=== PATIENT | female | born 1985 | race African-American/Black ===

== ENCOUNTER → 2019-02-19 | Outpatient (CLI) | payer BC ==
--- NOTE | 2019-02-19 15:59 | KCIC ---
Pelvic ultrasound HISTORY: Irregular menstrual bleeding. Cervical intraepithelial neoplasia. Irregular bleeding for 3 months. No prior study for comparison. Transabdominal scan Uterus is grossly unremarkable. No definite fluid in the pelvis. Right ovary demonstrates intact blood supply without obvious abnormality. Left ovary demonstrates intact blood supply without obvious abnormality. Transvaginal scan Uterus measures 8.9 x 5.1 x 3.7 cm. Small echogenic reflector is identified in the mid uterine segment likely calcification. Endometrial stripe measures 3 mm. The cervix demonstrates a heterogeneous echotexture, may be related to the patient's tumor. The left ovary measures 3.1 cm with intact blood supply and a 1.9 cm cyst or dominant follicle. The right ovary measures 3.6 cm. No evidence of free fluid. IMPRESSION: 1. Heterogeneous cervical echotexture, could be related to the patient's tumor and/or hemorrhage. 2. 1.9 cm left ovarian cyst or follicle. Electronically signed by: John Maldonado MD (02/19/2019 3:57 PM) [facility]
== END | disposition home or self-care (01) ==
LOC: KCIC US 12:38
PROVIDERS: ATTEND Physician Assistant Surgical
DX: N83.02 Follicular cyst of left ovary (principal); N87.0 Mild cervical dysplasia
CPT/HCPCS: 76830; 76856

== ENCOUNTER → 2020-08-29 | Outpatient (CLI) | payer MEDICAID ==
[2020-08-29 12:35] LABS: ALBUMIN 2.7 g/dL (3.4-5.0); ALBUMIN/GLOBULIN RATIO 0.8 (1.0-1.7); CREATININE 0.5 mg/dL (0.6-1.0); POTASSIUM 4.2 mmol/L (3.5-5.1); TOTAL BILIRUBIN 0.3 mg/dL (0.2-1.0); TOTAL PROTEIN 6.3 g/dL (6.4-8.2); URIC ACID 4.1 mg/dL (2.6-6.0)
[2020-08-29 12:53] LABS: HEMATOCRIT 34.3 % (36.0-47.0); HEMOGLOBIN 11.3 g/dL (12.0-15.5); MEAN CORPUSCULAR HEMOGLOBIN 29 pg (25-35); MEAN CORPUSCULAR HGB CONC 33 g/dL (31-37); MEAN CORPUSCULAR VOLUME 89 fL (79-100); PLATELET COUNT 277 x10^3/uL (140-400); RED BLOOD COUNT 3.87 x10^6/uL (3.50-5.40); RED CELL DISTRIBUTION WIDTH 13.8 % (11.5-14.5); WHITE BLOOD COUNT 15.6 x10^3/uL (4.0-11.0)
[2020-08-30 18:09] LABS: RUBELLA IGG ANTIBODY <0.90 index (Immune >0.99)
== END ==
LOC: LAB 11:19
PROVIDERS: ATTEND Obstetrics & Gynecology
DX: Z34.92 Encounter for supervision of normal pregnancy, unspecified, second trimester (principal); Z3A.17 17 weeks gestation of pregnancy
CPT/HCPCS: 36415; 80053; 83615; 84550; 85027; 85660; 86592; 86703; 86762; 86787; 86803; 86850; 86900; 86901; 87340

== ENCOUNTER → 2020-09-21 | Outpatient (CLI) | payer MEDICAID, BC ==
--- NOTE | 2020-09-22 17:58 | RAD ---
EXAM: Ultrasound OB Greater than 14 weeks INDICATION: Reason: Z34.92 / Spl. Instructions: / History: TECHNIQUE: Real-time obstetrical ultrasound was performed with permanent freeze-frame documentation. COMPARISON: None. FINDINGS: POSITION: Cephalic HEART RATE: 158 bpm SHANELL: 11.5 cm PLACENTA: Posterior CERVICAL LENGTH: 5.6 cm MATERNAL UTERUS: Unremarkable. MATERNAL ADNEXA: Unremarkable. AGE/DATES: Gestational Age by LMP: 21 weeks 5 days Gestation Age by US: 21 weeks 4 days EDC by LMP: 01/27/2021 EDC by US: 01/28/2021 WEIGHT: 464 grams +/- 69 grams PERCENTILE WEIGHT: Not estimated BIOMETRIC PARAMETERS: BPD: 5.0 cm corresponding with 21 weeks 1 day HC: 18.0 cm corresponding with 20 weeks 3 days AC: 16.9 cm corresponding with 21 weeks 6 days FL: 3.9 cm corresponding with 22 weeks 4 days ANATOMY: CARDIAC: Normal four chamber heart. UMBILICAL CORD: Normal 3 vessel cord. Normal cord insertion. BRAIN: Unremarkable. NOSE/LIPS: Unremarkable. SPINE: Unremarkable. EXTREMITIES: Unremarkable. STOMACH: Unremarkable. KIDNEYS: Unremarkable. BLADDER: Unremarkable. IMPRESSION: Normal OB ultrasound demonstrating a single viable fetus in cephalic position. Estimated gestational age of 21 weeks 4 days and EDC of 01/28/2021. Electronically signed by: Shira Rodriguez MD (09/22/2020 5:56 PM) [id number]
== END ==
LOC: US 13:42
PROVIDERS: ATTEND Obstetrics & Gynecology
DX: Z34.92 Encounter for supervision of normal pregnancy, unspecified, second trimester (principal); Z3A.21 21 weeks gestation of pregnancy
CPT/HCPCS: 76805

== ENCOUNTER → 2020-09-27 | Outpatient (CLI) | payer MEDICAID, BC ==
[~2020-09-27] MED LIST: DOCU-109 PO; IBUP-1060 PO
== END ==
LOC: SPEC 14:34
PROVIDERS: ATTEND Obstetrics & Gynecology
DX: Z34.92 Encounter for supervision of normal pregnancy, unspecified, second trimester (principal); Z3A.22 22 weeks gestation of pregnancy
CPT/HCPCS: Q0111

== ENCOUNTER → 2020-10-25 | Outpatient (CLI) | payer BC, MEDICAID ==
[2020-10-25 14:55] LABS: HEMATOCRIT 34.9 % (36.0-47.0); HEMOGLOBIN 11.7 g/dL (12.0-15.5); RED BLOOD COUNT 4.01 x10^6/uL (3.50-5.40); WHITE BLOOD COUNT 16.1 x10^3/uL (4.0-11.0)
== END ==
LOC: LAB 13:33
PROVIDERS: ATTEND Obstetrics & Gynecology
DX: Z34.92 Encounter for supervision of normal pregnancy, unspecified, second trimester (principal); Z3A.00 Weeks of gestation of pregnancy not specified
CPT/HCPCS: 36415; 82950; 85027

== ENCOUNTER → 2021-01-19 | Outpatient (CLI) | payer MEDICAID | LOC: LAB 12:51 | PROVIDERS: ATTEND Obstetrics & Gynecology | DX: Z01.812 Encounter for preprocedural laboratory examination (principal); Z20.828 Contact with and (suspected) exposure to other viral communicable diseases; O00.01 Abdominal pregnancy with intrauterine pregnancy | CPT/HCPCS: U0003; U0005 ==

== ENCOUNTER 2021-01-22 06:10 | Inpatient (IN) | payer MEDICAID ==
[~2021-01-22] VITALS: Ht 165.1 cm; Wt 174.5 kg
[2021-01-22] MEDS ORDERED: 0.9 % SODIUM CHLORIDE 10 ML DISP.SYRIN. IV PRN ×2 (06:15→19:00)
[2021-01-22] MEDS ORDERED: ONDANSETRON PF 4 MG/2 ML VIAL. IVP PRN (06:15)
[2021-01-22] MEDS ORDERED: IBUPROFEN 400 MG TABLET. PO PRN (06:15)
[2021-01-22] MEDS ORDERED: CITRIC ACID/SODIUM CITRATE 30 ML SOLUTION. PO PRN (06:15)
[2021-01-22] MEDS ORDERED: LIDOCAINE 1% PF 30 ML VIAL. INJ PRN (06:15)
[2021-01-22] MEDS ORDERED: BUTORPHANOL 2 MG/ML VIAL. IVP PRN (06:15)
[2021-01-22] MEDS ORDERED: OXYTOCIN 30 UNIT/500 ML PREMIX 500 ML IV PRN ×3 (06:15→19:00)
[2021-01-22] MEDS ORDERED: TERBUTALINE 1 MG/ML VIAL. SQ PRN (06:15)
[2021-01-22] MEDS ORDERED: ACETAMINOPHEN 500 MG TABLET PO PRN (06:30)
[2021-01-22] MEDS ORDERED: PENICILLIN G K 5,000,000 UNIT in IV DEXTROSE 5% 100ML 100 ML IV ONE (07:00)
[2021-01-22 07:01] VITALS: BP 126/64
[2021-01-22] MEDS: IV RINGERS,LACTATED 1000ML 1,000 ML IV SCH ×2 (07:19→11:51)
--- NOTE | 2021-01-22 08:02 | PDOC1 ---
[facility] H&P Date of Admission: Date of Admission: January 22, 2021 at 06:10 History of Present Illness: EDC: 01/27/21 LMP: 04/22/21 35y @ 39.2 by L=6 presents for indxn of labor. The pt has had very few ctx's to this point. PMH: Prediabetes, HLD, Obesity PSH: Denies Meds: PNV All: NKDA OBHx: 36wk x 2 SH: no tob, no EtOH FH: Colon Cancer, HTN, DM. Medications: Meds: Current Medications Medications (Trade) Dose Ordered Sig/Mary Route PRN Reason Start Time Stop Time Status Last Admin Dose Admin Ringer's Solution 1,000 ml @ 125 mls/hr Q8H IV 01/22/21 06:15 01/22/21 07:19 Oxytocin 500 ml @ 0 mls/hr CONT PRN IV SEE I/O RECORD 01/22/21 06:15 01/22/21 07:21 Penicillin G Potassium 6000039 unit/Dextrose 100 ml @ 100 mls/hr 1X ONCE IV 01/22/21 07:00 01/22/21 07:59 DC 01/22/21 07:19 Allergies: Coded Allergies: No Known Drug Allergies (Unverified , 01/22/21) Physical Exam: Vital Signs: Vital Signs Date Time Temp Pulse Resp B/P (MAP) Pulse Ox O2 Delivery O2 Flow Rate FiO2 01/22/21 07:01 98.4 131 18 126/64 (84) 99 Room Air 98.4 PE: GENERAL: No apparent distress. Alert and oriented. HEENT: Head normocephalic, atraumatic. NECK: Supple LUNGS: Clear to auscultation. HEART: RRR, S1, S2 present, pulses intact ABDOMEN: Soft, positive bowel sounds. EXTREMITIES: No cyanosis or edema. NEUROLOGIC: Normal speech, normal tone PSYCHIATRIC: Normal affect, normal mood. SKIN: No ulceration. FHT: 150s +acels/no decels/mLTV [place]: 7-10 min SVE: 3/60/-3 Assessment & Plan: A/P 35y @ 39.2 by L=6 1.) Indxn on Pit 2.) H/o PTD - both 36wks 3.) H/o dysplasia - pap neg/neg 06/06/20 4.) cHTN - BP high nml today. Baseline PIH labs wnl, Pr/Cr 0.092 5.) Rub NI 6.) Ct pos - BETH neg 08/01/20 7.) Anemia - Hgb 11.7 8.) TDAP given 11/22/20 9.) Fetus cat I FHT 10.) GBS pos on PCN YESSICA RHODES MD January 22, 2021 08:02
[2021-01-22 08:18] LABS: BASO % 0 % (0-3); EOS # 0.1 x10^3/uL (0.0-0.7); EOS % 1 % (0-3); HEMATOCRIT 37.4 % (36.0-47.0); HEMOGLOBIN 12.3 g/dL (12.0-15.5); LYMPH % 20 % (24-48); MEAN CORPUSCULAR HEMOGLOBIN 29 pg (25-35); MEAN CORPUSCULAR HGB CONC 33 g/dL (31-37); MEAN CORPUSCULAR VOLUME 89 fL (79-100); MONO % 6 % (0-9); NEUT # 10.8 x10^3/uL (1.8-7.7); NEUT % 72 % (31-73); PLATELET COUNT 280 x10^3/uL (140-400); RED BLOOD COUNT 4.22 x10^6/uL (3.50-5.40); RED CELL DISTRIBUTION WIDTH 15.7 % (11.5-14.5); WHITE BLOOD COUNT 14.9 x10^3/uL (4.0-11.0)
[2021-01-22] MEDS: PENICILLIN G K 2,500,000 UNIT in IV DEXTROSE 5% 50 ML IV SCH ×2 (11:51→16:18)
[2021-01-22] MEDS: BUTORPHANOL 2 MG/ML VIAL. IVP PRN ×2 (12:51→15:10)
[2021-01-22] MEDS ORDERED: ROPIVacaine 0.2% PF 10 ML VIAL. ONE ×2 (16:45→17:00)
[2021-01-22] MEDS ORDERED: L&D EPIDURAL SYRINGE 50 ML ONE (16:45)
[2021-01-22] MEDS ORDERED: fentaNYL PF VIAL 100 MCG/2 ML VIAL ONE (16:46)
[2021-01-22] MEDS ORDERED: L&D EPIDURAL 50 ML SYRINGE. ONE (17:00)
--- NOTE | 2021-01-22 18:44 | PDOC ---
VAGINAL DELIVERY DATE DATE: 01/22/21 TIME: 18:43 TIME Patient delivered a viable female over intact perineum at 1803. Wt 9 lb 9 oz. Apgars 8/8. Placenta delivered spontaneously, intact with 3VC. 2nd degree laceration repaired with 20 vicryl in nml fashion. Good hemostasis noted. 20 U of Pit given with IVF. EBL 200cc. WEIGHT Weight [ ] YESSICA RHODES MD January 22, 2021 18:44
[2021-01-22] MEDS ORDERED: BENZOCAINE 20% TOPICAL AEROSOL SPRAY 57GM CAN. TP PRN (19:00)
[2021-01-22] MEDS ORDERED: HYDROCORTISONE 1% TOPICAL OINTMENT 30GM TUBE. TP PRN (19:00)
[2021-01-22] MEDS ORDERED: ACETAMINOPHEN 325 MG TABLET. PO PRN (19:00)
[2021-01-22] MEDS ORDERED: MAG HYDROX/ALUMINUM HYD/SIMETH 30 ML ORAL.SUSP PO PRN (19:00)
[2021-01-22] MEDS ORDERED: PHENYLEPH/MINERAL OIL/PETROLAT RECTAL OINTMENT TUBE. RC PRN (19:00)
[2021-01-22] MEDS ORDERED: MMR per PROTOCOL. MC PRN (19:00)
[2021-01-22] MEDS ORDERED: TDaP (Adacel) per PROTOCOL. MC PRN (19:00)
[2021-01-22] MEDS ORDERED: SIMETHICONE 80 MG TAB.CHEW PO PRN (19:00)
[2021-01-22] MEDS ORDERED: diphenhydrAMINE HCL 25 MG CAPSULE PO PRN (19:00)
[2021-01-22] MEDS ORDERED: ZOLPIDEM 5 MG TABLET. PO PRN (19:00)
[2021-01-22] MEDS ORDERED: MAGNESIUM HYDROXIDE 2,400 MG/30 ML ORAL.SUSP. PO PRN (19:00)
[2021-01-22] MEDS: IBUPROFEN 400 MG TABLET. PO PRN (19:51)
[2021-01-22] MEDS: oxyCODONE/APAP 5/325 1 TAB TABLET PO PRN (19:52)
[2021-01-22 21:00] VITALS: BP 152/87
[2021-01-23] MEDS: oxyCODONE/APAP 5/325 1 TAB TABLET PO PRN ×2 (01:08→22:12)
[2021-01-23 01:10] VITALS: BP_SYST 125
[2021-01-23 05:22] LABS: HEMATOCRIT 33.2 % (36.0-47.0); RED BLOOD COUNT 3.78 x10^6/uL (3.50-5.40); RED CELL DISTRIBUTION WIDTH 15.7 % (11.5-14.5); WHITE BLOOD COUNT 19.8 x10^3/uL (4.0-11.0)
[2021-01-23] MEDS ORDERED: FERROUS SULFATE 325 MG TABLET. PO SCH (08:00)
[2021-01-23 08:10] VITALS: BP 119/70
[2021-01-23] MEDS: PRENATAL MULTIVITAMIN TABLET. PO SCH (08:31)
[2021-01-23] MEDS: DOCUSATE SODIUM 100 MG CAPSULE. PO PRN ×2 (08:31→17:13)
[2021-01-23] MEDS: IBUPROFEN 400 MG TABLET. PO PRN ×2 (08:31→17:15)
--- NOTE | 2021-01-23 10:12 | PDOC ---
TIME CLOCK INSPECTOR PROGRESS NOTE Date of Service: DATE: 01/23/21 TIME: 10:12 Subjective: Pt with good pain control. Natalie PO. Voiding. Minimal lochia. Denies JENKINS, changes in vision or abd pain. Objective: Vital Signs: Vital Signs Date Time Temp Pulse Resp B/P (MAP) Pulse Ox O2 Delivery O2 Flow Rate FiO2 01/22/21 07:01 98.4 131 18 126/64 (84) 99 Room Air 98.4 Vital Signs Date Time Temp Pulse Resp B/P (MAP) Pulse Ox O2 Delivery O2 Flow Rate FiO2 01/23/21 08:10 98.1 107 18 119/70 (86) 97 Room Air 98.1 Labs: Laboratory Tests Test 01/23/21 04:50 White Blood Count 19.8 x10^3/uL (4.0-11.0) H Red Blood Count 3.78 x10^6/uL (3.50-5.40) Hemoglobin 11.0 g/dL (12.0-15.5) L Hematocrit 33.2 % (36.0-47.0) L Mean Corpuscular Volume 88 fL (79-100) Mean Corpuscular Hemoglobin 29 pg (25-35) Mean Corpuscular Hemoglobin Concent 33 g/dL (31-37) Red Cell Distribution Width 15.7 % (11.5-14.5) H Platelet Count 259 x10^3/uL (140-400) Laboratory Tests 01/23/21 04:50 Laboratory Tests 01/23/21 04:50 Physical Exam: GENERAL: No apparent distress. Alert and oriented. HEENT: Head normocephalic, atraumatic. NECK: Supple LUNGS: Clear to auscultation. HEART: RRR, S1, S2 present, pulses intact ABDOMEN: Soft, positive bowel sounds. EXTREMITIES: No cyanosis or edema. NEUROLOGIC: Normal speech, normal tone PSYCHIATRIC: Normal affect, normal mood. SKIN: No ulceration. FFNT below umb No C/C/E Assessment & Plan: A/P 35y PPD #1 s/p 1.) PP doing well 2.) H/o dysplasia - pap neg/neg 06/06/20 3.) cHTN - BP nml to mild throughout hospital course. No s/s of preeclampsia 4.) Rub NI 5.) Anemia - Hgb 12.3 -> 1.0 6.) TDAP given 11/22/20 7.) Cont PP care YESSICA RHODES MD January 23, 2021 10:12
[2021-01-23 13:00] VITALS: BP 134/79
[2021-01-23 16:25] VITALS: BP 134/77
[2021-01-23 20:52] VITALS: BP 138/94
[2021-01-24 01:40] VITALS: BP 144/99
[2021-01-24] MEDS: IBUPROFEN 400 MG TABLET. PO PRN ×2 (06:16→17:12)
[2021-01-24 06:19] VITALS: BP 130/65
[2021-01-24] MEDS ORDERED: MEASLES, MUMPS & RUBELLA VACC 0.5 ML VIAL. VAX SQ ONE (07:15)
[2021-01-24 08:15] VITALS: BP 148/72
[2021-01-24] MEDS: DOCUSATE SODIUM 100 MG CAPSULE. PO PRN ×2 (09:12→17:11)
[2021-01-24] MEDS: PRENATAL MULTIVITAMIN TABLET. PO SCH (09:12)
[2021-01-24 12:11] VITALS: BP 128/83
[2021-01-24] MEDS ORDERED: DOCU-109 PO (13:09)
[2021-01-24] MEDS ORDERED: IBUP-1060 PO (13:09)
--- NOTE | 2021-01-24 15:39 | PDOC ---
RETORT CONDENSER ATTENDANT PROGRESS NOTE Date of Service: DATE: 01/24/21 TIME: 15:38 Subjective: Pt with good pain control. Natalie PO. Voiding. Minimal lochia. Denies JENKINS, changes in vision, or abd pain. Objective: Vital Signs: Vital Signs Date Time Temp Pulse Resp B/P (MAP) Pulse Ox O2 Delivery O2 Flow Rate FiO2 01/23/21 08:10 98.1 107 18 119/70 (86) 97 Room Air 98.1 Vital Signs Date Time Temp Pulse Resp B/P (MAP) Pulse Ox O2 Delivery O2 Flow Rate FiO2 01/24/21 12:11 97.4 104 18 128/83 (98) 97.4 01/24/21 08:15 97 Room Air Physical Exam: GENERAL: No apparent distress. Alert and oriented. HEENT: Head normocephalic, atraumatic. NECK: Supple LUNGS: Clear to auscultation. HEART: RRR, S1, S2 present, pulses intact ABDOMEN: Soft, positive bowel sounds. EXTREMITIES: No cyanosis or edema. NEUROLOGIC: Normal speech, normal tone PSYCHIATRIC: Normal affect, normal mood. SKIN: No ulceration. FFNT below umb No C/C/E Assessment & Plan: A/P 35y PPD #2 s/p 1.) PP doing well 2.) H/o dysplasia - pap neg/neg 06/06/20 3.) cHTN - BP nml to mild throughout hospital course. No s/s of preeclampsia 4.) Rub NI MMR given 01/24/21 5.) Anemia - Hgb 12.3 -> 11.0 6.) TDAP given 11/22/20 7.) D/c home YESSICA RHODES MD January 24, 2021 15:39
[2021-01-24 17:45] VITALS: BP 124/73
--- NOTE | 2021-01-24 18:38 | NUR ---
dismissed amb per pt request to sister in car with baby in car seat. motrin and colace rx gicven to pt along with home care instructions
--- NOTE | 2021-01-24 20:25 | DS ---
DATE OF DISCHARGE: 01/24/2021 ADMISSION DIAGNOSES: 1. Intrauterine at 39 weeks and 2 days by a LMP equal to a 6-week ultrasound. 2. Induction of labor. 3. History of delivery. 4. History of dysplasia, normal Pap on 06/06/2020. 5. Chronic hypertension. 6. Rubella nonimmune. 7. Chlamydia positive with negative treatment of cure. 8. Anemia. 9. Status post Tdap. 10. GBS positive. DISCHARGE DIAGNOSES: 1. Intrauterine at 39 weeks and 2 days by a LMP equal to a 6-week ultrasound. 2. Induction of labor. 3. History of delivery. 4. History of dysplasia, normal Pap on 06/06/2020. 5. Chronic hypertension. 6. Rubella nonimmune. 7. Chlamydia positive with negative treatment of cure. 8. Anemia. 9. Status post Tdap. 10. GBS positive. PROCEDURE: Spontaneous vaginal delivery. BRIEF HOSPITAL COURSE: The patient is a 35-year-old 3, para 0-2-0-2, who presented in labor and delivery at 39 weeks and 2 days by LMP equal to a 6-week ultrasound for induction of labor. The patient had a few contractions prior to presentation. The patient was subsequently started on Pitocin and penicillin for GBS positive status. The patient had a few mild range blood pressures in the office. Baseline PIH labs were sent, which returned normal with a protein-creatinine ratio of 0.092. During the course of her labor, the patient continued to have normal to mild range blood pressures. The patient ultimately delivered by vaginal delivery. See delivery note for full detail. By day #2, the patient was meeting all discharge criteria and was subsequently discharged home. Prior to discharge, the patient was given MMR for her rubella nonimmune status. Also of note, her hemoglobin on admission was 12.3 and after delivery it was found to be 11.0. DISCHARGE INSTRUCTIONS: The patient was told not to lift anything greater than 20 pounds and have pelvic rest for 6 weeks. CALL IF: The patient was to call if she had fevers, chills, nausea, vomiting, abdominal pain or any additional questions or concerns. FOLLOWUP APPOINTMENT: The patient was to follow up on 03/07/2021 at 1:30 p.m. for a visit. DISCHARGE MEDICATIONS: The patient was given prescription for Motrin 800 mg 30 pills and Colace 100 mg 30 pills. AMILCAR/PATRICK DR: Allison TID: [id number]
== END 2021-01-24 18:20 | disposition home or self-care (01) | DRG 807 ==
LOC: 3 SO LND 06:10
PROVIDERS: ADMIT Obstetrics & Gynecology; ATTEND Obstetrics & Gynecology
PROC: 10E0XZZ Delivery of Products of Conception, External Approach (ICD-10-PCS; principal; 2021-01-22)
PROC: 0KQM0ZZ Repair Perineum Muscle, Open Approach (ICD-10-PCS; 2021-01-22)
DX: O10.92 Unspecified pre-existing hypertension complicating childbirth (principal); Z37.0 Single live birth; E66.9 Obesity, unspecified; Z80.8 Family history of malignant neoplasm of other organs or systems; Z82.49 Family history of ischemic heart disease and other diseases of the circulatory system; Z83.3 Family history of diabetes mellitus; E78.5 Hyperlipidemia, unspecified; D64.9 Anemia, unspecified; Z3A.39 39 weeks gestation of pregnancy; O99.02 Anemia complicating childbirth; O99.284 Endocrine, nutritional and metabolic diseases complicating childbirth; R73.03 Prediabetes; O99.824 Streptococcus B carrier state complicating childbirth; O70.1 Second degree perineal laceration during delivery
CPT/HCPCS: 36415; 85025; 85027; 86592; 86850; 86900; 86901; 90471; 90707; J0595; J2540; J2590; J2795; J3010; J3490; J7060; J7120; G0378